=== PATIENT | female | born 1950 | race African-American/Black ===

== ENCOUNTER → 2016-11-29 12:30 | Outpatient (CLI) | payer BC ==
[2015-04-28 03:59] VITALS: BMI 33.7
[~2016-11-29 12:30] MED LIST: ALLERGY SHOT; ASPIRIN325 MG PO; ATIVAN1 MG PO; CATAPRES0.1 MG PO; CLARITIN 10 MG10 MG PO; CRESTOR5 MG PO; HEART BURN; MULTIPLE VITAMI1 TA1 PO; PROTONIX40 MG PO
== END | disposition home or self-care (01) ==
LOC: D.RAD 12:30
DX: K59.00 Constipation, unspecified (principal); R10.13 Epigastric pain; R14.3 Flatulence

== ENCOUNTER → 2017-12-16 09:59 | Outpatient (CLI) | payer MEDICARE ==
[2015-04-28 03:59] VITALS: BMI 33.7
== END | disposition home or self-care (01) ==
LOC: D.US 09:59
DX: Z68.33 Body mass index [BMI] 33.0-33.9, adult (principal); N28.1 Cyst of kidney, acquired

== ENCOUNTER → 2018-03-31 08:57 | Outpatient (CLI) | payer MEDICARE, BC ==
[2015-04-28 03:59] VITALS: BMI 33.7
== END | disposition home or self-care (01) ==
LOC: D.MRI 08:57
DX: M54.5 Low back pain (principal)

== ENCOUNTER 2018-08-17 12:13 | Emergency (ER) | payer MEDICARE, BC ==
[~2018-08-17] VITALS: Ht 162.6 cm; Wt 85.0 kg
[2018-08-17 12:21] VITALS: Ht 162.6 cm; Wt 85.0 kg
[2018-08-17 13:11] LABS: APTT 27.3 SECONDS (22.8-39.4); INR 1.03 (0.85-1.17)
[2018-08-17 13:12] LABS: BASOPHILS 0.1 % (0-2); EOSINOPHILS 0.1 % (0-7); HEMATOCRIT 41.3 % (36.0-48.0); HEMOGLOBIN 13.9 g/dL (12-16); IMMATURE GRANULOCYTES 0.5 % (0-5); LYMPHOCYTES 20.6 % (15-50); MCH 29.1 pg (26.0-34.0); MCHC 33.7 g/dL (31.0-37.0); MCV 86.4 fL (80.0-100.0); MEAN PLATELET VOLUME 10.2 fL (7.4-10.4); MONOCYTES 8.7 % (2-11); RBC 4.78 10x6/uL (4.00-5.40); RDW 14.6 % (11.5-14.5); WBC 12.6 10x3/uL (4.8-10.8)
[2018-08-17 13:13] LABS: PLATELET COUNT 352 10x3/uL (130-400)
[2018-08-17 13:15] LABS: ALKALINE PHOSPHATASE 79 U/L (46-116); ALT (SGPT) 25 U/L (10-68); BILIRUBIN - TOTAL 0.36 mg/dL (0.2-1.3); CALC OSMOLALITY 284 mosm/kg (275-300); CALCIUM 9.4 mg/dL (8.5-10.1); CARBON DIOXIDE 24.3 mmol/L (21.0-32.0); CHLORIDE - SERUM 103 mmol/L (98-107); CREATININE - SERUM 1.1 mg/dL (0.6-1.3); GLUCOSE 102 mg/dL (74-106); POTASSIUM - SERUM 4.1 mmol/L (3.5-5.1); PROTEIN - SERUM 8.1 g/dL (6.4-8.2); SODIUM 141 mmol/L (136-145); UREA NITROGEN 23 mg/dL (7-18); eGFR NON AFRICAN AMERICAN 53 mL/min (90-120)
[2018-08-17 13:21] LABS: CKMB 2.4 U/L (0.0-3.6); CREATINE KINASE 188 UL (21-215); MAGNESIUM - SERUM 2.3 mg/dL (1.8-2.4); TROPONIN-I 0.036 ng/mL (0.000-0.060)
[2018-08-17] MEDS ORDERED: ZOLOFT25 MG PO (14:02)
[2018-08-17 15:10] VITALS: BP 147/74
== END 2018-08-17 15:11 | disposition home or self-care (01) ==
LOC: D.ER 12:13
PROVIDERS: Emergency Medicine
DX: F41.9 Anxiety disorder, unspecified (principal); F32.9 Major depressive disorder, single episode, unspecified

== ENCOUNTER 2018-08-21 19:57 | Emergency (ER) | payer MEDICARE ==
[~2018-08-21] VITALS: Ht 162.6 cm; Wt 86.4 kg
[~2018-08-21 19:57] MED LIST changes: +ZOLOFT25 MG PO
[2018-08-21 20:04] VITALS: Ht 162.6 cm; Wt 86.4 kg
[2018-08-21 20:27] LABS: BASOPHILS 0.1 % (0-2); EOSINOPHILS 2.6 % (0-7); HEMATOCRIT 41.2 % (36.0-48.0); HEMOGLOBIN 13.7 g/dL (12-16); IMMATURE GRANULOCYTES 0.4 % (0-5); LYMPHOCYTES 43.5 % (15-50); MCH 28.6 pg (26.0-34.0); MCHC 33.3 g/dL (31.0-37.0); MEAN PLATELET VOLUME 9.9 fL (7.4-10.4); MONOCYTES 8.9 % (2-11); NEUTROPHILS 44.5 % (40-80); PLATELET COUNT 353 10x3/uL (130-400); RBC 4.79 10x6/uL (4.00-5.40); RDW 14.5 % (11.5-14.5); WBC 14.1 10x3/uL (4.8-10.8)
[2018-08-21 20:34] LABS: APTT 25.2 SECONDS (22.8-39.4)
[2018-08-21 20:35] LABS: INR 0.99 (0.85-1.17); PROTIME 12.6 SECONDS (11.6-15.0)
[2018-08-21 20:47] LABS: ALBUMIN 3.9 g/dL (3.4-5.0); ALKALINE PHOSPHATASE 88 U/L (46-116); ALT (SGPT) 24 U/L (10-68); CALC OSMOLALITY 280 mosm/kg (275-300); CALCIUM 9.2 mg/dL (8.5-10.1); CARBON DIOXIDE 24.8 mmol/L (21.0-32.0); CHLORIDE - SERUM 100 mmol/L (98-107); CREATININE - SERUM 1.2 mg/dL (0.6-1.3); GLUCOSE 126 mg/dL (74-106); POTASSIUM - SERUM 3.7 mmol/L (3.5-5.1); PROTEIN - SERUM 8.2 g/dL (6.4-8.2); SODIUM 138 mmol/L (136-145); UREA NITROGEN 20 mg/dL (7-18); eGFR NON AFRICAN AMERICAN 48 mL/min (90-120)
[2018-08-21 20:56] LABS: CKMB 0.5 U/L (0.0-3.6); CREATINE KINASE 61 UL (21-215)
[2018-08-21 22:29] VITALS: BP 152/77
== END 2018-08-21 22:29 | disposition home or self-care (01) ==
LOC: D.ER 19:57
PROVIDERS: Family Medicine
DX: F40.9 Phobic anxiety disorder, unspecified (principal); Z86.73 Personal history of transient ischemic attack (TIA), and cerebral infarction without residual deficits; I10 Essential (primary) hypertension

== ENCOUNTER → 2019-05-31 10:07 | Outpatient (CLI) | payer MEDICARE ==
[2018-08-21 20:04] VITALS: BMI 32.7
--- NOTE | 2019-06-04 09:28 | ST ---
PATIENT:SAM HADDAD MEDICAL RECORD: [id number] SEX: F LOCATION:[facility] ORDER #: ADMISSION DATE: 05/31/19 AGE OF PATIENT: 68 REFERRING PHYSICIAN: INTERPRETING PHYSICIAN: ALE HOU MD DATE OF SERVICE: 05/31/2019 PROCEDURE: Nuclear stress test. INDICATIONS: Angina, hypertension, hyperlipidemia. She was exercised on standard Lexiscan protocol with 33 mCi of sestamibi injected at peak stress, 11 mCi used previously for rest images. FINDINGS: Gated SPECT reveals preserved ejection fraction at 83% with good wall motion and thickening and brightening throughout all segments. SPECT imaging: Cardiolite was used as myocardial perfusion agent. There is homogeneous uptake throughout all segments at rest and stress with no evidence of inducible ischemia or previous infarction. OVERALL IMPRESSION: 1. This is a normal nuclear stress test with no evidence of inducible ischemia or previous infarction. 2. Gated SPECT reveals a preserved ejection fraction at 83%. In this patient with ongoing symptomatology, the current scan does not suggest the presence of hemodynamically significant coronary artery disease. Evaluate noncardiac etiology of chest pain. TRANSINT:[id number] Voice Confirmation ID: [id number] DOCUMENT ID: [id number] ALE HOU MD at 0928 CC: ADI ALLEN [id number] DICTATION DATE: 06/01/19 1000 POURER METAL: 06/01/19 2144 DEP CLI 05/31/19 [facility] [address] [place] [address]
== END | disposition home or self-care (01) ==
LOC: D.HCCARDIO 10:07
PROVIDERS: ATTEND Internal Medicine Interventional Cardiology
DX: R07.9 Chest pain, unspecified (principal)

== ENCOUNTER 2020-01-02 07:30 | Observation (INO) | payer MEDICARE ==
[~2020-01-02] VITALS: Ht 162.6 cm; Wt 88.2 kg
[2020-01-02] MEDS ORDERED: ALDACTONE25 MG PO (07:37)
[2020-01-02] MEDS ORDERED: ZYRTEC10 MG PO (07:37)
[2020-01-02] MEDS ORDERED: ASPIRIN81 MG PO (07:37)
[2020-01-02] MEDS ORDERED: VIT D2 (07:38)
[2020-01-02] MEDS ORDERED: LIPITOR20 MG PO (07:38)
[2020-01-02] MEDS ORDERED: TOPROL XL50 MG PO (07:38)
[2020-01-02] MEDS ORDERED: BUSPAR5 MG PO (07:39)
[2020-01-02 08:14] LABS: BASOPHILS 0.3 % (0-2); EOSINOPHILS 4.1 % (0-7); HEMATOCRIT 39.4 % (36.0-48.0); HEMOGLOBIN 12.7 g/dL (12-16); IMMATURE GRANULOCYTES 0.1 % (0-5); LYMPHOCYTES 40.6 % (15-50); MCH 28.2 pg (26.0-34.0); MCHC 32.2 g/dL (31.0-37.0); MCV 87.6 fL (80.0-100.0); MEAN PLATELET VOLUME 9.9 fL (7.4-10.4); MONOCYTES 10.8 % (2-11); NEUTROPHILS 44.1 % (40-80); PLATELET COUNT 344 10x3/uL (130-400); RDW 14.1 % (11.5-14.5); WBC 7.2 10x3/uL (4.8-10.8)
[2020-01-02 08:23] VITALS: BP 145/81
[2020-01-02 08:26] LABS: CALC OSMOLALITY 281 mosm/kg (275-300); CALCIUM 8.9 mg/dL (8.5-10.1); CARBON DIOXIDE 29.4 mmol/L (21.0-32.0); CHLORIDE - SERUM 102 mmol/L (98-107); CREATININE - SERUM 1.3 mg/dL (0.6-1.3); GLUCOSE 126 mg/dL (74-106); POTASSIUM - SERUM 4.1 mmol/L (3.5-5.1); SODIUM 139 mmol/L (136-145); UREA NITROGEN 19 mg/dL (7-18); eGFR NON AFRICAN AMERICAN 43 mL/min (90-120)
[2020-01-02 08:40] LABS: APTT 26.3 SECONDS (22.8-39.4); INR 0.99 (0.85-1.17); PROTIME 13.1 SECONDS (11.6-15.0)
[2020-01-02 08:41] LABS: D-DIMER-QUANTITATIVE 0.32 ug/mLFEU (0.20-0.54)
[2020-01-02 08:44] LABS: ALKALINE PHOSPHATASE 91 U/L (30-120); ALT (SGPT) 29 U/L (10-68); BILIRUBIN - TOTAL 0.55 mg/dL (0.2-1.3); CKMB 0.8 U/L (0.0-3.6); CREATINE KINASE 103 UL (21-215); MAGNESIUM - SERUM 1.9 mg/dL (1.8-2.4); PROTEIN - SERUM 7.7 g/dL (6.4-8.2); TROPONIN-I < 0.017 ng/mL (0.000-0.060)
--- NOTE | 2020-01-02 10:13 | NUR ---
PT SITTING UP IN BED. NO DISTRESS NOTED. COLOR WNL, RESPIRATIONS ARE EVEN AND UNLABORED. WILL CONTINUE TO MONITOR.
--- NOTE | 2020-01-02 11:09 | NUR ---
CALLED REPORT TO EFREN AT THIS TIME.
[2020-01-02 12:19] VITALS: BP 110/65
[2020-01-02 12:28] VITALS: BP 100/73; BMI 33.9
[2020-01-02 13:03] VITALS: BP 100/73
[2020-01-02 15:25] VITALS: Ht 162.6 cm; Wt 88.2 kg
[2020-01-02 16:23] LABS: BASOPHILS 0.3 % (0-2); EOSINOPHILS 2.2 % (0-7); HEMATOCRIT 38.2 % (36.0-48.0); HEMOGLOBIN 12.4 g/dL (12-16); IMMATURE GRANULOCYTES 0.1 % (0-5); LYMPHOCYTES 33.8 % (15-50); MCH 28.1 pg (26.0-34.0); MCHC 32.5 g/dL (31.0-37.0); MCV 86.6 fL (80.0-100.0); MEAN PLATELET VOLUME 9.9 fL (7.4-10.4); MONOCYTES 9.3 % (2-11); NEUTROPHILS 54.3 % (40-80); PLATELET COUNT 347 10x3/uL (130-400); RBC 4.41 10x6/uL (4.00-5.40); RDW 14.2 % (11.5-14.5); WBC 6.8 10x3/uL (4.8-10.8)
[2020-01-02 16:31] VITALS: BP 146/79
[2020-01-02 16:33] LABS: ALBUMIN 3.8 g/dL (3.4-5.0); ALKALINE PHOSPHATASE 86 U/L (30-120); ALT (SGPT) 24 U/L (10-68); BILIRUBIN - TOTAL 0.42 mg/dL (0.2-1.3); CALC OSMOLALITY 280 mosm/kg (275-300); CALCIUM 8.8 mg/dL (8.5-10.1); CHLORIDE - SERUM 104 mmol/L (98-107); CKMB 0.8 U/L (0.0-3.6); CREATINE KINASE 76 UL (21-215); CREATININE - SERUM 1.4 mg/dL (0.6-1.3); GLUCOSE 123 mg/dL (74-106); POTASSIUM - SERUM 3.7 mmol/L (3.5-5.1); PROTEIN - SERUM 7.4 g/dL (6.4-8.2); SODIUM 139 mmol/L (136-145); UREA NITROGEN 17 mg/dL (7-18); eGFR NON AFRICAN AMERICAN 40 mL/min (90-120)
[2020-01-02 16:34] LABS: TROPONIN-I < 0.017 ng/mL (0.000-0.060)
[2020-01-02 20:00] VITALS: BP 166/80
[2020-01-03 04:00] VITALS: BP 142/65
[2020-01-03 06:21] LABS: BASOPHILS 0.2 % (0-2); EOSINOPHILS 4.1 % (0-7); HEMATOCRIT 38.8 % (36.0-48.0); HEMOGLOBIN 12.6 g/dL (12-16); IMMATURE GRANULOCYTES 0.3 % (0-5); LYMPHOCYTES 36.3 % (15-50); MCH 28.2 pg (26.0-34.0); MCHC 32.5 g/dL (31.0-37.0); MCV 86.8 fL (80.0-100.0); MEAN PLATELET VOLUME 10.1 fL (7.4-10.4); MONOCYTES 10.4 % (2-11); NEUTROPHILS 48.7 % (40-80); PLATELET COUNT 339 10x3/uL (130-400); RBC 4.47 10x6/uL (4.00-5.40); RDW 14.2 % (11.5-14.5); WBC 6.3 10x3/uL (4.8-10.8)
[2020-01-03 07:06] LABS: ALBUMIN 3.8 g/dL (3.4-5.0); ALKALINE PHOSPHATASE 84 U/L (30-120); ALT (SGPT) 22 U/L (10-68); CALC OSMOLALITY 280 mosm/kg (275-300); CALCIUM 8.9 mg/dL (8.5-10.1); CARBON DIOXIDE 29.8 mmol/L (21.0-32.0); CHLORIDE - SERUM 103 mmol/L (98-107); CKMB 0.9 U/L (0.0-3.6); CREATINE KINASE 71 UL (21-215); CREATININE - SERUM 1.2 mg/dL (0.6-1.3); GLUCOSE 101 mg/dL (74-106); POTASSIUM - SERUM 3.8 mmol/L (3.5-5.1); PROTEIN - SERUM 7.3 g/dL (6.4-8.2); SODIUM 140 mmol/L (136-145); TROPONIN-I < 0.017 ng/mL (0.000-0.060); UREA NITROGEN 19 mg/dL (7-18); eGFR NON AFRICAN AMERICAN 47 mL/min (90-120)
[2020-01-03 10:05] VITALS: BP 150/72
[2020-01-03 14:08] VITALS: BP 132/93
[2020-01-03 18:23] VITALS: BP 143/88
--- NOTE | 2020-01-03 19:00 | NUR ---
BEDSIDE REPORT RECEIVED. PATIENT IS ALERT AND ORIENTATED. PATIENT IS RESTING COMFORTABLY AND CALL LIGHT IS WITH IN REACH.
[2020-01-03 20:00] VITALS: BP 140/83
[2020-01-04] VITALS: BP 127/70
[2020-01-04 04:00] VITALS: BP 127/78
--- NOTE | 2020-01-04 05:16 | NUR ---
PATIENT HAS SLEPT ALL NIGHT WITH NO COMPLAINTS. CALL LIGHT IS WITH IN REACH.
--- NOTE | 2020-01-04 07:00 | NUR ---
BEDSIDE REPORT RECEIVED. SHIFT ASSESSMENT COMPLETED PER FLOWSHEET, SEE FLOWSHEET FOR INFORMATION. AT BEDSIDE. PT DENIES ANY PAIN OR DISCOMFORT. NO S/S OF ACUTE DISTRESS NOTED. WILL CONT TO MONITOR. PT RESTING IN BED WATCHING TV. CALL LIGHT WITHIN REACH, BED IN LOWEST POSITION, SIDE RAILS UP X1.
[2020-01-04 08:00] VITALS: BP 141/86
[2020-01-04 12:00] VITALS: BP 154/89
--- NOTE | 2020-01-04 14:04 | NUR ---
PT DISCHARGED VIA WHEELCHAIR TO PERSONAL CEHICLE. PT VERBALIZED NO PERSONAL BELONGINGS LEFT. NO ACUTE NEEDS OR DISTRESS NOTED AT THIS TIME. PT DISCHARGED ACCOMPANIED BY NURSE.
[2020-01-07 10:08] LABS: CAT - DOPAMINE <30 pg/mL (0-48); CAT - EPINEPHRINE 68 pg/mL (0-62); CAT - NOREPINEPHRINE 496 pg/mL (0-874)
== END 2020-01-04 14:06 | disposition home or self-care (01) ==
LOC: D.ER 07:30 → D.M2 09:30 → OBSVTIME 09:30 → D.M2 09:30
PROVIDERS: Family Medicine; ADMIT Family Medicine; ATTEND Family Medicine
DX: R07.9 Chest pain, unspecified (principal); F41.8 Other specified anxiety disorders; I12.9 Hypertensive chronic kidney disease with stage 1 through stage 4 chronic kidney disease, or unspecified chronic kidney disease; N18.3 Chronic kidney disease, stage 3 (moderate); I20.0 Unstable angina; E78.5 Hyperlipidemia, unspecified; K21.9 Gastro-esophageal reflux disease without esophagitis; M19.90 Unspecified osteoarthritis, unspecified site; R00.2 Palpitations

== ENCOUNTER → 2020-01-25 08:34 | Outpatient (CLI) | payer MEDICARE ==
[2020-01-02 15:25] VITALS: BMI 33.9
[~2020-01-25 08:34] MED LIST changes: +ALDACTONE25 MG PO; +ASPIRIN81 MG PO; +BUSPAR5 MG PO; +LIPITOR20 MG PO; +TOPROL XL50 MG PO; +VIT D2; +ZYRTEC10 MG PO
== END | disposition home or self-care (01) ==
LOC: D.CT 08:30
PROVIDERS: ATTEND Nurse Practitioner Family
DX: R82.90 Unspecified abnormal findings in urine (principal); N18.2 Chronic kidney disease, stage 2 (mild); N28.1 Cyst of kidney, acquired; I10 Essential (primary) hypertension; E78.5 Hyperlipidemia, unspecified; R39.9 Unspecified symptoms and signs involving the genitourinary system